=== PATIENT | female | born 1990 | race Two or more races ===

== ENCOUNTER 2019-09-09 16:28 | Emergency (ER) | payer MEDICAID ==
[~2019-09-09] VITALS: Ht 152.4 cm; Wt 65.9 kg
[2019-09-09] MEDS ORDERED: LIDOCAINE/PF 1% 2 ML VIAL IM ONE (18:15)
[2019-09-09] MEDS ORDERED: IBUPROFEN 800 MG TABLET PO ONE (18:15)
[2019-09-09] MEDS ORDERED: SULFAMETHOX/TRIMETH DS 800-160 MG/TABLET PO ONE (18:15)
[2019-09-09] MEDS ORDERED: CefTRIAXone SODIUM 1 GM/VIAL IM ONE (18:15)
[2019-09-09 19:45] VITALS: BP 130/80
== END 2019-09-09 22:30 | disposition home or self-care (01) ==
LOC: EMS 16:30
DX: N61.0 Mastitis without abscess (principal)
CPT/HCPCS: 96372; 99283; J0696; J3490